=== PATIENT | male | born 1995 | race African-American/Black ===

== ENCOUNTER 2018-02-26 19:34 | Emergency (ER) | payer OTHER, MEDICAID ==
[~2018-02-26] VITALS: Ht 180.3 cm; Wt 113.0 kg
[2018-02-26] MEDS ORDERED: SODIUM CHLORIDE 0.9% 1,000 ML IV ONE ×2 (19:43)
[2018-02-26] MEDS ORDERED: TETANUS, DIPHTHERIA, PERTUSSIS VAC/PF 0.5ML (>7YR OLD) IM ONE (19:45)
[2018-02-26] MEDS ORDERED: MORPHINE SULFATE 10 MG/ML CPJ IV ONE (19:45)
[2018-02-26] MEDS ORDERED: ONDANSETRON HCL 4MG/2ML VIAL IV ONE (19:45)
[2018-02-26] MEDS ORDERED: METOCLOPRAMIDE HCL 10MG/2ML VIAL ONE (19:59)
[2018-02-26] MEDS ORDERED: METOCLOPRAMIDE HCL 10MG/2ML VIAL IV ONE (20:00)
[2018-02-26] MEDS ORDERED: MORPHINE SULFATE 4 MG/ML CPJ (NOT FOR IM USE) IV ONE (20:15)
[2018-02-26 20:18] VITALS: BP 127/106
== END 2018-02-26 20:08 | disposition short-term general hospital (02) ==
LOC: EDBD 19:36 → ER 19:36
DX: S01.00XA Unspecified open wound of scalp, initial encounter (principal); S31.119A Laceration without foreign body of abdominal wall, unspecified quadrant without penetration into peritoneal cavity, initial encounter; S71.111A Laceration without foreign body, right thigh, initial encounter; S61.412A Laceration without foreign body of left hand, initial encounter; X95.9XXA Assault by unspecified firearm discharge, initial encounter; Y92.89 Other specified places as the place of occurrence of the external cause; Y93.9 Activity, unspecified; Y92.9 Unspecified place or not applicable; F12.90 Cannabis use, unspecified, uncomplicated; F17.210 Nicotine dependence, cigarettes, uncomplicated; Z23 Encounter for immunization
CPT/HCPCS: 71045; 90471; 90715; 96374; 96375; 96376; 99291; J2270; J2765; J7030; L0172

== ENCOUNTER 2023-11-05 21:32 | Emergency (ER) | payer MEDICAID, OTHER ==
[~2023-11-05] VITALS: Ht 170.2 cm; Wt 105.0 kg
[2023-11-05 21:36] VITALS: TEMP 98.5; O2SAT 99
[2023-11-05] MEDS ORDERED: NALOXONE HCL 0.4MG/ML 1ML VIAL IM ONE (23:00)
[2023-11-06] MEDS ORDERED: NALO4SPR BOTHNSTRLS (00:40)
[2023-11-06] MEDS: ONDANSETRON 4MG ODT PO ONE (01:00)
[2023-11-06 01:35] VITALS: BP 134/73; PULSE 100; RESP 18
== END 2023-11-06 02:05 | disposition home or self-care (01) ==
LOC: ER 21:32
DX: F19.10 Other psychoactive substance abuse, uncomplicated (principal); F12.90 Cannabis use, unspecified, uncomplicated
CPT/HCPCS: 99283; Q0162